=== PATIENT | male | born 1985 | race Caucasian/White ===

== ENCOUNTER 2024-09-06 08:58 | Emergency (ER) | payer BC ==
[~2024-09-06] VITALS: Ht 175.3 cm; Wt 81.6 kg
[2024-09-06 09:20] VITALS: BP_SYST 121; PULSE 81; RESP 18; TEMP 97.7; O2SAT 98
[2024-09-06] MEDS: KETOROLAC TROMETHAMINE 60 MG/2 ML VIAL IM ONE (10:59)
[2024-09-06] MEDS ORDERED: TRAM50TA2 PO (13:23)
[2024-09-06 13:40] VITALS: BP_SYST 125; PULSE 63; RESP 14; TEMP 98.2; O2SAT 99
== END 2024-09-06 13:39 | disposition home or self-care (01) ==
LOC: SED 08:58
DX: H60.502 Unspecified acute noninfective otitis externa, left ear (principal); R51.9 Headache, unspecified
CPT/HCPCS: 99285; 70486; 96372; J1885